=== PATIENT | male | born 1950 | race Caucasian/White ===

== ENCOUNTER → 2024-04-09 11:32 | Outpatient (CLI) | payer MEDICARE, OTHER, SELFPAY ==
--- NOTE | 2024-04-09 12:05 | EKG_ITS ---
[facility] [address] [address] Test Date: 2024-04-09 Pat Name: René Rasmussen Department: [facility] Room: Gender: Male Agile Tester: [place] : 1950 Requested By: Order Number: [id number] Reading MD: Chacho Conde MD Measurements Intervals [place] Rate: 67 P: 32 WV: 184 QRS: -74 QRSD: 134 T: -3 QT: 412 QTc: 435 Interpretive Statements Normal sinus rhythm Left axis deviation Right bundle branch block (old) Inferior infarct , age undetermined Electronically Signed On 04-09-2024 17:22:50 PDT by Chacho Conde MD
[2024-04-09 12:25] LABS: Add Manual Diff / Slide Review NO; Basophils Absolute Auto 0 /uL (0-100); Basophils Percent Auto 0.5 % (0-2); Eosinophils Absolute Auto 100 /uL (0-450); Eosinophils Percent Auto 1.5 % (2-4); Hemoglobin 15.9 g/dL (13.5-17.5); Lymphocytes Absolute Auto 1000 /uL (1100-4500); Lymphocytes Percent Auto 21.3 % (25-40); Mean Corpuscular HGB Conc 33.8 % (30-36); Mean Corpuscular Hemoglobin 31.8 PG (26-34); Mean Corpuscular Volume 94.2 fL (80-100); Monocytes Absolute Auto 400 /uL (0-900); Monocytes Percent Auto 8.7 % (3-14); Neutrophils Absolute Auto 3200 /uL (1500-7000); Platelet Count 178 X10^3/uL (150-400); Red Blood Cell Count 4.99 X10^6/uL (4.5-5.9); Red Cell Distribution Width 13.6 % (11.6-14.8); White Blood Cell Count 4.6 X10^3/uL (4.5-11.0)
[2024-04-09 12:42] LABS: Appearance Urine UA CLEAR; Bilirubin Urine UA NEGATIVE (NEGATIVE); Color Urine UA YELLOW; Glucose Urine UA NEGATIVE (Negative); Ketones Urine UA NEGATIVE (NEGATIVE); Leukocyte Esterase Urine UA NEGATIVE (NEGATIVE); Nitrite Urine UA NEGATIVE (Negative); Occult Blood Urine UA TRACE-INTACT (Negative); Protein Urine UA NEGATIVE (Negative); pH Urine UA 5.5 (4.5-8.0)
[2024-04-09 12:47] LABS: BUN Creatinine Ratio 18.8 (6-22); Blood Urea Nitrogen 18 mg/dL (9-20); Calcium 9.7 mg/dL (8.4-10.2); Carbon Dioxide 28 mmol/L (22-32); Chloride 101 mmol/L (98-107); Estimated Glomerular Filt Rate > 60 mL/min (>60); Glucose 113 mg/dL (80-110); HEMOLYSIS < 15 (0-50); Potassium 4.1 mmol/L (3.4-5.1); Sodium 137 mmol/L (137-145)
[2024-04-09 12:51] LABS: Hemoglobin A1C% w Est Avg Glu 5.8 % (4.0-6.0)
[2024-04-09 13:03] LABS: RBC Urine 1-5/HPF (0-5/HPF); Urine Volume 10mL (spun); WBC Urine 0-1/HPF (0-5/HPF)
[2024-04-09 13:04] LABS: Bacteria Urine None Seen; Culture Indicated Urine Cult Not Indicated; Squamous Epithelial Cell Urine 0-1 /HPF (0-5/HPF)
== END ==
PROVIDERS: PCP Family Medicine; Referring Provider Orthopaedic Surgery; Visit Provider Orthopaedic Surgery
DX: Z01.818 Encounter for other preprocedural examination (principal); R73.9 Hyperglycemia, unspecified; Z01.812 Encounter for preprocedural laboratory examination; N39.0 Urinary tract infection, site not specified
CPT/HCPCS: 36415; 80048; 81001; 83036; 85025; 93005; 93010

== ENCOUNTER 2024-05-06 06:07 | Day surgery (SDC) | payer MEDICARE, OTHER, SELFPAY ==
[2024-04-28 08:05] VITALS: BMI 37.3
[2024-05-06] VITALS (14 sets, daily range): BP systolic 111–159; BP diastolic 67–116; PULSE 59–88; RESP 10–20; TEMP 36.4–36.9; O2SAT 94–99; BMI 36.9
--- NOTE | 2024-05-06 | DI.RAD.S_ITS ---
PROCEDURE: XR PELVIS 1-2V INDICATIONS: INTRA OP TECHNIQUE: Intra-operative view of the pelvis and hip acquired. COMPARISON: None. FINDINGS: Bones: Intraoperative devices prior to placement of arthroplasty prostheses are in expected positions. No fractures or suspicious bony lesions. Soft tissues: Overlying surgical retractors are present, along with other intraoperative changes. IMPRESSION: Intraoperative devices prior to placement of arthroplasty prosthesis are in expected position. Dictated by: Douglas Echeverria M.D. on 05/06/2024 at 16:08 Approved by: Douglas Echeverria M.D. on 05/06/2024 at 16:08
--- NOTE | 2024-05-06 06:00 | DI.RAD.S_ITS ---
PROCEDURE: XR HIP W PEL IF DONE RT 2V INDICATIONS: right KIERAN TECHNIQUE: AP pelvis and lateral view of the hip acquired. COMPARISON: [facility], MARK, XR PELVIS 1-2V, 05/06/2024, 9:14. FINDINGS: Bones: Patient is status post right hip arthroplasty, with hardware components in expected positions. The hip joint appears congruent. The visualized bony structures appear intact. Soft tissues: Overlying postoperative changes are noted. No suspicious soft tissue densities. IMPRESSION: Expected post-operative appearance of a hip arthroplasty. Dictated by: Sweta Delgado M.D. on 05/07/2024 at 11:20 Approved by: Sweta Delgado M.D. on 05/07/2024 at 11:21
[2024-05-06] MEDS: LACTATED RINGERS 1,000 ML 42 ML IV ×2 (06:52→09:02)
[2024-05-06] MEDS: ACETAMINOPHEN 325 MG TABLET 975 MG PO (06:52)
[2024-05-06] MEDS: VANCOMYCIN 1,000 MG/200 ML PIGGYBACK 200 MG IV (06:53)
[2024-05-06] MEDS: CELECOXIB 200 MG CAPSULE PO (06:53)
--- NOTE | 2024-05-06 07:37 | PM.PREOP ---
Pre-operative Note Interval Note History & Physical reviewed/Exam performed by Physician: Yes Changes to H&P: No
--- NOTE | 2024-05-06 07:37 | PM.OP.1 ---
Operative Date/Time/Diagnoses Date of procedure: 05/06/24 Time of procedure: 08:00 Pre-op diagnosis: right hip OA Post-op diagnosis: same Procedure & Clinicians Procedure: Right total hip arthroplasty posterior approach Same procedure as scheduled: Yes Indications: The patient has had progressively worsening right hip pain with radiographic changes consistent with arthritis. Non-operative management has failed and the patient has requested total hip replacement. The risks, benefits and alternatives to surgery were discussed with the patient prior to proceeding. Risks discussed included, but were not limited to, failure to relieve pain, leg length discrepancy, dislocation, stiffness, infection, nerve damage, deep venous thrombosis, pulmonary embolism, stroke, coma, heart attack, permanent paralysis and , as well as the potential need for eventual revision of the prosthetic. Surgeon: Mariel Charles Surg Physician Asst: Prashant Kaba Anesthesia Type: General and Spinal Operative Notes Findings: Severe right hip OA Closure Type: primary Specimen(s): none sent Prosthetic devices, grafts, tissues, transplants, or devices: [employer] 56 R3, 20 degree poly liner, two 6.5 mm screws, polar stem lateralized size 4, + 0 CO ch, Estimated Blood Loss (mL): 250 Blood products transfused: none Procedure in detail: The patient was seen in the pre-operative area, where the patient identified the right hip as the operative site and this was marked with my initials. The patient received pre-operative antibiotics and was taken to the operating room and placed on the operative table in the left lateral decubitus position after satisfactory anesthesia. A time motion analyst out was performed. The right leg was prepared from the ankle to the iliac crest with ChloroPrep in the usual fashion and draped through sterile drapes. A PA was used during the procedure was essential for intraoperative retraction and safe implantation of the components. The hip was approached through an approximately 20 cm incision centered over the greater trochanter and curving gently posteriorly as it went proximally. This was carried sharply to the fascia tirso, which was divided and retracted with a self retaining retractor. The trochanteric bursa was excised with care being taken to avoid the sciatic nerve, which was identified and protected throughout the case. The short external rotators were incised and the capsulomuscular flap was raised and tagged for later repair. The hip was dislocated, and a femoral neck osteotomy performed approximately 15 mm above the lesser trochanter. Retractors were placed around the femur. The canal was opened with a box cutting osteotome, followed by a T handled reamer and a lateralizing reamer. The chili pepper broach was then used, followed by sequential broaching until there was good stability of the broach in the femur. Retractors were placed to expose the acetabulum. The labrum and central soft tissues were removed. Reaming was performed initially going up in 2 mm increments, then 1 mm increments until good bite was obtained with an odd sized reamer. The cup 1 mm larger than the last reamer was then inserted using the appropriate anteversion guides. It was further stabilized with two screws. A trial neutral liner was placed. The broach was placed in the canal. A trial head and neck were then placed and the hip relocated and checked for leg length and stability. An intraoperative film confirmed the component position and no evidence of fracture. I placed the patient through a range of motion to check stability. There was a little instability inferiorly. We cup checked the cup position it appeared adequate. I thought I could likely improve stability with a lipped liner. I tried a 20 degree lip liner. We also looked at both standard offset and a more lateralized prosthesis. The lateralized prosthesis had better stability. The 20 degree lip liner had better stability. The patient was stable in the position of sleep, of squatting, and could be put through a range of motion with 45 degrees internal rotation without dislocation. At 90 degrees flexion, internal rotation to 70? was possible before dislocation. This was felt to be satisfactory and the appropriate components were opened, and the trials were removed. The acetabular liner was impacted into position. The final stem was then impacted into the prepared femoral canal. A brief Betadine soak was performed while trialing with head options. The hip was meticulously irrigated with normal saline. Finally the femoral head was impacted onto the stem. The acetabulum was cleared of all material and the hip relocated one final time. The capsulomuscular flap was then repaired to the greater trochanter though an awl hole using the tag sutures. The short external rotators were repaired with a nonabsorbable suture. A deep drain was placed and brought out anteriorly. The fascia tirso was closed with Vicryl. The subcutaneous layer was closed with barbed sutures and SteriStrips. An Aquacel Ag dressing was applied and the patient was taken to recovery having tolerated the procedure well. Complications: none Post-operative Condition: stable Disposition: Acute Care Plan for aftercare: The patient will be maintained on a standard total hip replacement protocol with weight bearing as tolerated and posterior hip precautions. The patient will receive Aspirin and sequential compression devices for DVT prophylaxis. The patient will be discharged home when safe for the home environment.
[2024-05-06] MEDS: CEFAZOLIN 2 GM/100 ML PREMIX 100 ML IV ×2 (08:09→15:04)
[2024-05-06] MEDS: TRANEXAMIC ACID 1,000 MG VIAL 2000 MG INJ ×2 (08:10→10:18)
--- NOTE | 2024-05-06 08:34 | SUR.OPER ---
Lateral on padded OR table , head on pillow, gel axillary roll in place, bottom leg bent with gel pad under knee to foot, upper held on field supported by thompson stand. Right arm across chest supported by pillows and secured with pillow case and tape over bottom arm padded with gel to padded arm board. Tape over blanket over left lower leg.
[2024-05-06] MEDS: BUPIVACAINE 0.5% (PF) 30 ML, EPINEPHrine 0.15 MG INJ (08:44)
[2024-05-06] MEDS: SODIUM CHLORIDE IRRIG SOLUTION 250 ML, EPINEPHrine 1 MG IRR (08:47)
[2024-05-06] MEDS: BUPIVACAINE LIPOSOME 266 MG/20 ML VIAL INJ (10:34)
[2024-05-06] MEDS: LACTATED RINGERS 1,000 ML 100 ML IV ×2 (12:13→20:09)
[2024-05-06] MEDS: ACETAMINOPHEN 325 MG TABLET 650 MG PO ×2 (13:08→20:13)
[2024-05-06] MEDS: OXYCODONE IR 5 MG TABLET PO ×3 (13:08→22:27)
[2024-05-06] MEDS: IBUPROFEN 400 MG TABLET PO ×2 (15:04→20:12)
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
[2024-05-06] MEDS: DOCUSATE 100 MG CAPSULE PO (20:09)
[2024-05-06] MEDS: ASPIRIN EC 81 MG TABLET PO (20:09)
[2024-05-06] MEDS: ATORVASTATIN 20 MG TABLET 10 MG PO (20:10)
[2024-05-06] MEDS: METFORMIN XR 500 MG TABLET PO (20:11)
[2024-05-07] VITALS: BP 136/94; PULSE 74; RESP 17; TEMP 36.6; O2SAT 97
[2024-05-07] MEDS: CEFAZOLIN 2 GM/100 ML PREMIX 100 ML IV (00:03)
[2024-05-07] MEDS: IBUPROFEN 400 MG TABLET PO ×2 (00:43→08:50)
[2024-05-07 05:37] LABS: Hematocrit 40.2 % (41-53); Hemoglobin 13.6 g/dL (13.5-17.5)
[2024-05-07] MEDS: ACETAMINOPHEN 325 MG TABLET 650 MG PO ×2 (06:04→12:15)
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
[2024-05-07] MEDS: polyethylene glycoL 3350 17 GM POWD.PACK PO (08:49)
[2024-05-07] MEDS: ASPIRIN EC 81 MG TABLET PO (08:49)
[2024-05-07] MEDS: OXYCODONE IR 5 MG TABLET PO ×2 (08:50→12:15)
[2024-05-07] MEDS: METFORMIN XR 500 MG TABLET PO (08:51)
[2024-05-07] MEDS: DOCUSATE 100 MG CAPSULE PO (08:51)
[2024-05-07 09:00] VITALS: BP 128/78; PULSE 83; RESP 16; TEMP 36.6; O2SAT 98
--- NOTE | 2024-05-07 09:33 | OT.IP.TRT ---
Current Diagnoses Unilateral primary osteoarthritis, right hip (05/06/24) Surgery Performed Operation Date: 05/06/24 07:45 Actual Procedures p Total Hip Arthroplasty(Right) - Mariel Charles MD Occupational Therapy Treatment Note M2 OT-IP Current Condition Start: 05/06/24 16:34 Freq: Status: Active Protocol: Document 05/06/24 16:35 [facility] (Rec: 05/06/24 16:53 [facility] [id number]) Occupational Therapy Current Condition Current Condition Evaluation Date 05/06/24 Treatment Diagnosis S/P R KIERAN Diagnosis Onset Date 05/06/24 Post Operative Precautions Posterior Hip Precautions No Hip Flexion > 90 degrees,No Hip Internal Rotation,No Hip Adduction M3 OT- IP Subjective and Pain Start: 05/06/24 16:34 Freq: Status: Active Protocol: Document 05/07/24 09:35 [facility] (Rec: 05/07/24 09:42 [facility] [id number]) OT- Subjective Occupational Therapy Visit Type Type Treatment Note Visit Start Time 09:15 Visit Stop Time 09:33 Occupational Therapy Visit Comments Patient Comments Pt not leaving til PM and wanting to wait to get dressed . Patient/Caregiver Goals To go home. OT Pain Assessment Pain When Pain Assessed At Rest Pain Present Pain Present Pain Reported Location Right Hip Intensity 3 Scale Used Numeric (0 - 10) M4 OT- IP ADL's Start: 05/06/24 16:34 Freq: Status: Active Protocol: Document 05/07/24 09:35 [facility] (Rec: 05/07/24 09:42 [facility] [id number]) OT URR-[id number]-Ykyrlum General Evaluation Self-Feeding Ability Independent OT ADL-Grooming General Evaluation Grooming Ability Independent OT ADL-Oral Care General Eval Oral Care Ability Independent OT ADL-Dressing Comments OT Dressing Comments Pt states to just wear slip on shoes at home. OT ADL-Toileting Comments OT Toileting Comments NOt performed. OT ADL-Bathing Comments OT Bathing Comments Pt states to get a HHSP for home use and emphasized to be sure to cover his dressing prior to showering needs. M5 OT- IP IADL's Start: 05/06/24 16:34 Freq: Status: Active Protocol: Document 05/06/24 16:35 [facility] (Rec: 05/06/24 16:53 [facility] [id number]) OT-Instrumental Activities of Daily Living Home Safety Awareness Awareness of Need for Assistance at Home Good Awareness Ability to Problem Solve Emergency Able to Problem Solve Situations Home Safety Comments Pt's significant other and family close by to assist. Medication Management Medication Management No Deficits Identified Money Management Money Management No Deficits Identified Meal Preparation Meal Preparation Comments Pt will need assist. Car Porter Car Porter Comments Pt's family or SO to assist. M6 OT- IP Functional Cognition Start: 05/06/24 16:34 Freq: Status: Active Protocol: Document 05/07/24 09:35 [facility] (Rec: 05/07/24 09:42 [facility] [id number]) Cognitive Factors Limiting Selfcare Function Cognitive Comments Cognitive Assessment Comments Intact, reviewed of not to keep the FWW too close to him, not to sleep on his left side to ensure that his right leg does not cross over, and to avoid having to carry items such as his meals and jusy sit on higher stool/surfaces to eat in the kitchen. Pt states usually sit in his rolling office chair and states will just back it to a wall. Suggested to have someone with him to try as the office chair can be a fall risk especially due to having wheels on it. Best to sit somewhere else that will be stable. M8 OT- IP Objective Assessments Start: 05/06/24 16:34 Freq: Status: Active Protocol: Document 05/06/24 16:35 [facility] (Rec: 05/06/24 16:53 [facility] [id number]) OT Gross Range of Motion Upper Extremity Range of Motion Assessment Within Functional Limits OT Strength Upper Extremity Strength Assessment Within Functional Limits M9 OT- IP Assessment and Plan Start: 05/06/24 16:34 Freq: Status: Active Protocol: Document 05/07/24 09:35 [facility] (Rec: 05/07/24 09:42 [facility] [id number]) OT Summary Assessment and Plan Potential Rehabilitation Potential Excellent Analytic Complexity at Evaluation Low Summary OT Impairments Pain,Balance,Functional Mobility,Dressing,Toileting, Bathing,Toilet Transfers, Shower Transfers,Activity Tolerance Progress Towards Goals Progressing Toward Goals Assessment Summary Pt has good understanding for all ADL and mobility need and ability to follow his hip precautions. Pt to go home with assist and have outpt PT. Discharge Recommendations OT Discharge Recommendations Home with Assistance, Outpatient PT Home Equipment Needs sock aid Transportation Needs at Discharge Private Vehicle
[2024-05-07 10:11] VITALS: O2SAT 98
--- NOTE | 2024-05-07 10:30 | PT.IPTN ---
Current Diagnoses Unilateral primary osteoarthritis, right hip (05/06/24) Surgery Performed Operation Date: 05/06/24 07:45 Actual Procedures p Total Hip Arthroplasty(Right) - Mariel Charles MD Physical Therapy Treatment Note M2 PT-IP Current Condition Start: 05/06/24 13:29 Freq: NEEDED Status: Active Protocol: Document 05/06/24 15:57 MB (Rec: 05/06/24 16:41 MB [id number]) Physical Therapy Current Condition Current Condition Evaluation Date 05/06/24 Treatment Diagnosis R posterior KIERAN M3 PT-IP Subjective Start: 05/06/24 13:29 Freq: NEEDED Status: Active Protocol: Document 05/07/24 11:37 TS (Rec: 05/07/24 11:47 TS [id number]) Subjective Physical Therapy Visit Type Type Treatment Note Visit Start Time 10:30 Visit Stop Time 11:10 Number of DISPLAY TRIMMER Visits 1 Physical Therapy Visit Comments Patient Comments Pt found resting in bed, he is agreeable to PT. Therapy Pain Assessment Pain When Pain Assessed At Rest Pain Present Pain Present Pain Reported M4 PT-IP Mobility and Gait Start: 05/06/24 13:29 Freq: NEEDED Status: Active Protocol: Document 05/07/24 11:37 TS (Rec: 05/07/24 11:47 TS [id number]) PT-Bed Mobility Assessment Supine to Sit Supine to Sit Moderate Assistance,1 Person Assistance Scooting Scooting to Edge of Bed Contact Guard Assistance PT-Transfer Assessment Sit to and From Stand Sit to and from Stand Contact Guard Assistance,1 Person Assistance,Use of Upper Extremities Equipment Transfer Assistive Device Gait Belt,Front Wheeled Walker Orthotic/Prosthetic Devices or Brace: No Comments Mobility Comments Pt recalled 3/3 hip precautions. Supine to sit ModA for uprighting trunk and LLE assist, pt used gait belt to assist LLE to EOB. STS with FWW CGA, pt uced for pushing from bed. He mabulated to toilet ~10' SBA with FWW and a step to gait. He ambulated ~ 80' in hallway SBA, had no buckling or LOB. Pt was brought to stairs in w/c. He performs steps x3 CGA with CONCRETE PAVING MACHINE OPERATOR and use of R rail. Pt was brought back to room with w/c. HE was left sitting in bed side chair, all needs met. Gait Assessment Gait Gait Assistance Required: Standby Assistance Distance (Feet) 90 Able to Maintain Weight Bearing Status Yes During Gait Assistive Devices Assistive Device Gait Belt,Front Wheeled Walker Orthotic/Prosthetic Devices or Brace: No Gait Deviations General Gait Pattern Antalgic,Decreased Stride Length,Decreased Feet Clearance,Flexed Trunk,Step-to Gait,Wide Based Gait Factors Limiting Gait Function Factors Limiting Gait Function Decreased Activity Tolerance, Decreased Strength,Pain,Poor Balance Comments Gait Comments See mobility comments Stair Climbing Assessment Evaluation Level of Assist On Stairs Contact Guard Assistance,1 Person Assistance Devices Stair Climbing Assistive Devices Right Railing Technique/Endurance Stair Climbing Direction Ascend and Descend Stair Climbing Technique Step to Step Number of Steps Climbed 3 PT-Balance Assessment Sitting Balance and Reactions Static Sitting Balance Ability Good Dynamic Sitting Balance Ability Good Standing Balance and Reactions Static Standing Balance Ability Good Dynamic Standing Balance Ability Fair Device Used Bariatric FWW M5 PT-IP Objective Assessments Start: 05/06/24 13:29 Freq: NEEDED Status: Active Protocol: Document 05/06/24 15:57 MB (Rec: 05/06/24 16:41 MB [id number]) Orientation Orientation/Cognition Level of Alertness Alert Orientation Name,Age,Birthday,Month,Date, Year,Day of Week,Place, Situation Language Function Ability No Deficits Noted Safety Awareness Decreased Safety Awareness Memory Description No Deficits Noted Gross Range of Motion Upper Extremity ROM Impairments Defer to OT Lower Extremity ROM Assessment Right Impaired Impairments Decreased right hip range post -op Strength Lower Extremity Strength Assessment Right Impaired Comments Strength Comments LLE is functional and right ankle and knee feel functional Sensation Assessment Sensation Gross Sensation WNL Muscle Tone Muscle Tone WNL Yes M6 PT-IP Treatment Start: 05/06/24 13:29 Freq: NEEDED Status: Active Protocol: Document 05/07/24 11:37 TS (Rec: 05/07/24 11:47 TS [id number]) Physical Therapy Treatment Education Education Provided Precautions,Weight Bearing Status,Post-Op Packet,Safety M7 PT-IP Assessment and Plan Start: 05/06/24 13:29 Freq: NEEDED Status: Active Protocol: Document 05/07/24 11:37 TS (Rec: 05/07/24 11:47 TS [id number]) PT Summary Assessment and Plan Potential Rehabilitation Potential Good Summary Impairments Pain,ROM,Strength,Balance, Coordination,Bed Mobility, Transfers,Gait,Activity Tolerance Progress Towards Goals Progressing Toward Goals Assessment Summary René is making some progress with his mobility. He ModA for bed this session. Educated pt on sleeping in recliner and agreed. He progressed his gait to ~90'SBA with FWW. He performed stairs x3 with CONCRETE PAVING MACHINE OPERATOR and use of R rail . He has a his partner to help in the evenings and on weekends. PT is recommending home with assist. Goals Bed Mobility Goal Independent Transfer Goal Independent,Front Wheeled Walker Gait Goal Independent,Front Wheel Walker Gait Distance 100 Other Goals Pt will ascend and descend 2 steps with right rail and no more than CGA to allow safe home entry. Pt to gait with his bariatric RW Days to Meet Goals 3 Frequency of Treatment Frequency Of Treatment Twice a Day Treatment Plan Physical Therapy Treatment Plan Bed Mobility Training,Transfer Training,Gait Training, Therapeutic Exercise,Balance Retraining,Post Op Education, Discharge Planning,Hot or Cold Pack,Neuromuscular Re-ed, Coordination Retraining,Manual Therapy Precautions Posterior Hip Precautions No Hip Flexion > 90 degrees,No Hip Internal Rotation,No Hip Adduction Weight Bearing Status Weight Bearing Status Weight Bear as Tolerated Recommendations To Nursing Amount of Assist Needed 1 Person Assist Discharge Recommendations PT Discharge Recommendations Home with Assistance, Outpatient PT Transportation Needs at Discharge Private Vehicle
--- NOTE | 2024-05-07 14:51 | CM.DANOTE ---
Initial DCP Assessment Note Pt is a 73 yo male, resident of [place], now POD#1 from [facility] PCP: Delbert Rosario Payer: [facility]/ Commercial Reviewed chart, pt discussed in multidisciplinary rounds this morning. Therapy has cleared pt for return home w/family to assist and pt has planned for home, DC order from Ortho has already been initiated this morning. No barriers identified at this time to patient's safe discharge home w/family to assist; close outpatient f/u recommended. CM team will plan to follow clinical course closely in case any DC needs or concerns arise. DANII Sewell Discharge Planning/Care Management Discharge Assessment Start: 05/07/24 14:47 Freq: Status: Active Protocol: Document 05/07/24 14:47 MIKEY (Rec: 05/07/24 14:50 [email or web address] [id number]) Discharge Planning Assessment Assigned Hazardous Substances Engineer DANII Bustillo DPOA/Assigned Designee Name Francesca Maza, [place] Contact Information [phone] Advance Directives? Yes Advance Directives on File No History Provided By Patient Prior Living Arrangements House Household Members significant other,none Type of transporation used prior to Drives own vehicle admit Independent with ADL's Yes Is patient alert and oriented? Yes Patient/Family Preference OP PT Therapy Discharge Plan Home Transportation Arrangement SO Referrals Initiated None needed
== END 2024-05-07 14:23 | disposition home or self-care (01) ==
LOC: OR 06:08 → AC 06:09
PROVIDERS: PCP Family Medicine; Referring Provider Orthopaedic Surgery; Visit Provider Orthopaedic Surgery
PROC: 0SR90JZ Replacement of Right Hip Joint with Synthetic Substitute, Open Approach (ICD-10-PCS; CPT 27130; principal; 2024-05-06 07:45)
DX: M16.11 Unilateral primary osteoarthritis, right hip (principal); E11.9 Type 2 diabetes mellitus without complications; G47.30 Sleep apnea, unspecified; Z79.84 Long term (current) use of oral hypoglycemic drugs
CPT/HCPCS: 27130; 36415; 72170; 73502; 85014; 85018; 97116; 97161; 97165; 97530; 97535; C1776; C9290; J0171; J0330; J0690; J2405; J2704; J2765; J3010